=== PATIENT | female | born 1995 | race Caucasian/White ===

== ENCOUNTER 2023-04-10 20:47 | Emergency (ER) | payer BC ==
[~2023-04-10] VITALS: Ht 170.2 cm; Wt 95.5 kg
[2023-04-10 20:50] VITALS: TEMP 99.1
[2023-04-10 21:06] LABS: BASO # 0.1 K/mm3 (0.0-0.2); BASO % 0.6 % (0.0-2.0); EOS # 0.3 K/mm3 (0.0-0.7); EOS % 2.5 % (0.0-4.0); GRAN # 5.7 K/mm3 (1.4-6.5); GRAN % 57.5 % (42.2-75.2); HEMATOCRIT 44.5 % (37.0-47.0); HEMOGLOBIN 15.3 g/dl (12.5-16.0); LYMPH % 30.5 % (20.0-51.0); MEAN CELL VOLUME 92 fl (80.0-100.0); MEAN CORPUSCULAR HEMOGLOBIN 32 pg (27-31); MEAN CORPUSCULAR HGB CONC 34 g/dl (33.0-37.0); MEAN PLATELET VOLUME 9.3 fl (7.4-10.4); MONO # 0.9 K/mm3 (0.1-0.6); MONO % 8.6 % (1.7-9.3); PLATELET COUNT 337 K/mm3 (130-400); RED BLOOD COUNT 4.82 M/mm3 (4.10-5.30); REDCELL DISTRIBUTION WIDTH-CV 12.7 % (11.5-14.5)
[2023-04-10 21:26] LABS: ALANINE AMINOTRANSFERASE 26 U/L (0-55); ALBUMIN 4.1 gm/dL (3.5-5.0); ALKALINE PHOSPHATASE 60 U/L (40-150); ANION GAP 14 mmol/L (7-16); AST,SGOT 19 U/L (5-34); BILIRUBIN,TOTAL 0.4 mg/dL (0.2-1.2); BLOOD UREA NITROGEN 10 mg/dL (7-19); CALCIUM 9.2 mg/dL (8.4-10.2); CARBON DIOXIDE 19 mmol/L (22-29); CHLORIDE 109 mmol/L (98-107); GLUCOSE 103 mg/dL (70-99); POTASSIUM 3.5 mmol/L (3.5-4.5); SODIUM 142 mmol/L (136-145); TOTAL PROTEIN 7.3 gm/dL (6.2-8.1)
[2023-04-10 21:33] LABS: TROPONIN-I < 0.010 ng/mL (0.00-0.033)
[2023-04-10 22:13] LABS: COLLECTION METHOD CLEAN CATCH
[2023-04-10 22:25] LABS: PH 6.5 (5.0-8.5); URINE APPEARANCE Clear (CLEAR/HAZY); URINE BLOOD Negative (NEGATIVE); URINE COLOR Yellow (YELLOW); URINE GLUCOSE Negative (NEGATIVE); URINE KETONE Negative (NEGATIVE); URINE NITRATE Negative (NEGATIVE); URINE PROTEIN(semi-quant) Negative (NEGATIVE); URINE UROBILINOGEN 0.2 E.U/dL (0.2-1.0)
[2023-04-10 22:30] LABS: URINE BACTERIA Occasional /hpf (NONE SEEN)
[2023-04-10 22:57] VITALS: BP 125/65; PULSE 75
== END 2023-04-10 22:57 | disposition home or self-care (01) ==
LOC: COL.ER 20:47
PROVIDERS: Nurse Practitioner Primary Care
DX: R25.1 Tremor, unspecified (principal)
CPT/HCPCS: J7030

== ENCOUNTER 2023-04-27 08:51 | Outpatient (CLI) | payer BC ==
[~2023-04-27] VITALS: Ht 170.2 cm; Wt 102.5 kg
[~2023-04-27 08:51] MED LIST: NEURONTIN300 MG/CAP PO
[2023-04-27] MEDS ORDERED: DRAMAMINE LESS25 MG PO (09:16)
[2023-04-27 09:19] VITALS: BP 134/85; PULSE 88; TEMP 98.7
[2023-04-27 11:00] VITALS: BP 110/78; PULSE 64
[2023-04-27 11:15] VITALS: BP 110/76; PULSE 66
[2023-04-27 11:18] LABS: GLUCOSE,CSF 63 mg/dL (40-70); TOTAL PROTEIN,CSF 58 mg/dL (15-45)
[2023-04-27 11:30] VITALS: BP 111/65; PULSE 69
[2023-04-27 12:00] VITALS: BP 107/64; PULSE 69
[2023-04-27 12:40] LABS: CSF APPEARANCE CLEAR; CSF COLOR COLORLESS
[2023-04-27 12:41] LABS: CSF MONONUCLEAR 100 % (70-100); CSF POLYMORPHONUCLEAR 0 % (0-6); CSF RBC 319 /mm3 (0-0)
[2023-04-28] MEDS ORDERED: FLEXERIL 1010 MG/TAB PO (13:24)
== END 2023-04-27 12:15 | disposition home or self-care (01) ==
LOC: COL.RAD 08:51
PROVIDERS: Psychiatry & Neurology Neurology
DX: R25.1 Tremor, unspecified (principal)

== ENCOUNTER 2024-02-24 07:55 | Emergency (ER) | payer BC ==
[~2024-02-24] VITALS: Ht 167.6 cm; Wt 90.9 kg
[~2024-02-24 07:55] MED LIST changes: +DRAMAMINE LESS25 MG PO; +FLEXERIL 1010 MG/TAB PO
[2024-02-24 07:57] VITALS: TEMP 97.8
[2024-02-24] MEDS ORDERED: Ondansetron 4 MG/2 ML VIAL IV ONE (08:15)
[2024-02-24] MEDS ORDERED: Morphine 4 MG/ML VIAL IV PRN (08:15)
[2024-02-24] MEDS ORDERED: NS 1,000 ML IV ONE (08:15)
[2024-02-24 08:27] LABS: BASO # 0.1 K/mm3 (0.0-0.2); BASO % 0.7 % (0.0-2.0); EOS # 0.2 K/mm3 (0.0-0.7); EOS % 1.6 % (0.0-4.0); GRAN # 6.9 K/mm3 (1.4-6.5); GRAN % 71.8 % (42.2-75.2); HEMATOCRIT 48.5 % (37.0-47.0); HEMOGLOBIN 16.5 g/dl (12.5-16.0); LYMPH # 1.8 K/mm3 (1.2-3.4); LYMPH % 19.2 % (20.0-51.0); MEAN CELL VOLUME 90 fl (80.0-100.0); MEAN CORPUSCULAR HEMOGLOBIN 31 pg (27-31); MEAN CORPUSCULAR HGB CONC 34 g/dl (33.0-37.0); MEAN PLATELET VOLUME 9.6 fl (7.4-10.4); MONO # 0.6 K/mm3 (0.1-0.6); MONO % 6.5 % (1.7-9.3); PLATELET COUNT 334 K/mm3 (130-400); RED BLOOD COUNT 5.39 M/mm3 (4.10-5.30); REDCELL DISTRIBUTION WIDTH-CV 12.6 % (11.5-14.5)
[2024-02-24 08:47] LABS: ALBUMIN 4.2 g/dL (3.5-5.0); BILIRUBIN,TOTAL 0.4 mg/dL (0.2-1.2); CALCIUM 9.6 mg/dL (8.4-10.2); CREATININE, serum 0.84 mg/dL (0.57-1.11); POTASSIUM 4.4 mEq/L (3.5-4.5); TOTAL PROTEIN 7.6 g/dl (6.2-8.1)
[2024-02-24] MEDS ORDERED: Ketorolac 30 MG/ML VIAL IV ONE (09:00)
[2024-02-24] MEDS ORDERED: Iohexol 300 - 100 ML VIAL IV ONE (09:17)
[2024-02-24] MEDS ORDERED: NS 100 ML IV SCH (09:18)
[2024-02-24 10:35] LABS: COLLECTION METHOD CLEAN CATCH
[2024-02-24 10:44] LABS: PH 5.5 (5.0-8.5); URINE APPEARANCE CLEAR (CLEAR/HAZY); URINE BLOOD NEGATIVE (NEGATIVE); URINE COLOR YELLOW (YELLOW); URINE GLUCOSE NEGATIVE (NEGATIVE); URINE KETONE TRACE (NEGATIVE); URINE NITRATE NEGATIVE (NEGATIVE); URINE PROTEIN(semi-quant) 1+ (NEGATIVE); URINE UROBILINOGEN 0.2 E.U/dL (0.2-1.0)
[2024-02-24] MEDS ORDERED: FLEXERIL 1010 MG/TAB PO (11:10)
[2024-02-24] MEDS ORDERED: MOTRIN 800800 MG/TAB PO (11:10)
[2024-02-24] MEDS ORDERED: NORCO 325 MG-51 TAB PO (11:10)
[2024-02-24 11:24] VITALS: BP 111/68; PULSE 65
== END 2024-02-24 11:27 | disposition home or self-care (01) ==
LOC: COL.ER 07:55
PROVIDERS: Personal Emergency Response Attendant
DX: M54.50 Low back pain, unspecified (principal)
CPT/HCPCS: J1885; J2270; J2405; J7030; Q9967

== ENCOUNTER 2024-04-06 14:40 | Emergency (ER) | payer BC ==
[~2024-04-06] VITALS: Ht 167.6 cm; Wt 91.4 kg
[~2024-04-06 14:40] MED LIST changes: +MOTRIN 800800 MG/TAB PO; +NORCO 325 MG-51 TAB PO
[2024-04-06 14:46] VITALS: TEMP 98
[2024-04-06 15:18] LABS: BASO # 0.1 K/mm3 (0.0-0.2); BASO % 0.7 % (0.0-2.0); EOS # 0.3 K/mm3 (0.0-0.7); EOS % 2.9 % (0.0-4.0); GRAN # 6.1 K/mm3 (1.4-6.5); GRAN % 59.4 % (42.2-75.2); HEMOGLOBIN 15.6 g/dl (12.5-16.0); LYMPH # 2.8 K/mm3 (1.2-3.4); LYMPH % 27.5 % (20.0-51.0); MEAN CELL VOLUME 91 fl (80.0-100.0); MEAN CORPUSCULAR HEMOGLOBIN 31 pg (27-31); MEAN CORPUSCULAR HGB CONC 35 g/dl (33.0-37.0); MEAN PLATELET VOLUME 9.6 fl (7.4-10.4); MONO % 9.4 % (1.7-9.3); PLATELET COUNT 360 K/mm3 (130-400); RED BLOOD COUNT 4.97 M/mm3 (4.10-5.30); REDCELL DISTRIBUTION WIDTH-CV 13.2 % (11.5-14.5)
[2024-04-06 15:24] LABS: INR 0.9 (0.8-3.0); PROTHROMBIN TIME 9.7 SECONDS (9.7-12.8)
[2024-04-06 15:26] LABS: PARTIAL THROMBOPLASTIN TIME 35.2 SECONDS (26.0-37.0)
[2024-04-06 15:35] LABS: ALANINE AMINOTRANSFERASE 24 U/L (0-55); ALKALINE PHOSPHATASE 69 U/L (40-150); ANION GAP 11 mmol/L (7-16); AST,SGOT 18 U/L (5-34); BILIRUBIN,TOTAL 0.3 mg/dL (0.2-1.2); BLOOD UREA NITROGEN 14 mg/dL (7-19); CALCIUM 9.2 mg/dL (8.4-10.2); CHLORIDE 108 mEq/L (98-107); CREATININE, serum 0.81 mg/dL (0.57-1.11); GLUCOSE 114 mg/dL (70-99); MAGNESIUM 2.1 mg/dL (1.6-2.6); POTASSIUM 3.9 mEq/L (3.5-4.5); SODIUM 142 mEq/L (136-145); TOTAL PROTEIN 7.4 g/dl (6.2-8.1)
[2024-04-06 15:45] LABS: TROPONIN-I < 0.010 ng/mL (0.00-0.033)
[2024-04-06] MEDS ORDERED: Pantoprazole 40 MG in NS 10 ML IV ONE (16:00)
[2024-04-06] MEDS ORDERED: PRILOSEC 20MG20 MG PO (16:08)
[2024-04-06 17:10] VITALS: BP 112/61; PULSE 60
== END 2024-04-06 17:10 | disposition home or self-care (01) ==
LOC: COL.ER 14:40
PROVIDERS: Family Medicine
DX: R07.89 Other chest pain (principal)
CPT/HCPCS: J2470